=== PATIENT | male | born 1970 | race Caucasian/White ===

== ENCOUNTER 2017-06-04 17:37 | Emergency (ER) | payer MEDICAID, OTHER ==
[2017-06-04 17:59] VITALS: BP 156/91
--- NOTE | 2017-06-04 19:03 | RAD ---
Indication: Right knee pain. 4 views of the right knee demonstrates no fracture. There are mild degenerative changes of both the medial and lateral compartment. There is suggestion of a suprapatellar effusion. IMPRESSION: Suprapatellar effusion with degenerative changes of both knees.
[2017-06-04] MEDS ORDERED: Ibuprofen TAB* 600 MG PO ONE (19:21)
--- NOTE | 2017-06-04 19:49 | UC ---
Gurwinder Martin Nilda, scribed for Jimbo Celestin MD on 06/04/17 at 1906 . Knee Pain HPI - HPI Summary HPI Summary: This patient is a 46 year old M presenting to [facility] with a chief complaint of constant right knee pain since twisting it while sleeping last night. The patient rates the aching pain 8/10 in severity. Symptoms aggravated by walking and bending. Symptoms alleviated by rest and ibuprofen. Patient reports right calf pain and decreased knee ROM secondary to pain. He states that he occasionally feels like knee may give out on him. Pt notes that when he keeps his leg straight, he occasionally feels pain travel to right foot. Two weeks ago pt twisted right knee after getting out of bed. No PMHx blood clots. PSHx surgery on his left knee. - History of Current Complaint Chief Complaint: UCLowerExtremity Stated Complaint: KNEE INJURY Time Seen by Provider: 06/04/17 18:30 Hx Obtained From: Patient Onset/Duration: Sudden Onset, Lasting Days, Still Present Severity Currently: Severe Location Of Injury: right knee Pain Intensity: 8 Pain Scale Used: 0-10 Numeric Character: Aching Aggravating Factor(s): Movement, Other - bending Alleviating Factor(s): Rest, OTC Meds - ibuprofen - Allergies/Home Medications Allergies/Adverse Reactions: Allergies Allergy/AdvReac Type Severity Reaction Status Date / Time CI Pigment Blue 63 Allergy Severe swelling/it Verified 06/04/17 17:59 [From Dexilant] ivette Dexlansoprazole Allergy Severe swelling/it Verified 06/04/17 17:59 [From Dexilant] ivette Home Medications: Home Medications Metformin HCl [Fortamet] 06/04/17 [History] Metoprolol Succinate [Metoprolol Succinate ER] 06/04/17 [History] Nicotine PATCH 21 MG/24 HR* 06/04/17 [History] PMH/Surg Hx/FS Hx/Imm Hx - Additional Past Medical History Additional PMH: Arthritis Cardiovascular History: Hypertension GI/ History: Ulcer - Surgical History Surgical History: Yes Surgery Procedure, Year, and Place: TRIPLE HERNIA REPAIR--AUGUST 2011 PT HAD MESH REACTION. LEFT KNEE SURGERY MAR 2015 - Family History Known Family History: Positive: Cardiac Disease - Social History Alcohol Use: None Alcohol Amount: ONCE A MONTH Substance Use Type: None Smoking Status (MU): Heavy Every Day Tobacco Smoker Type: Cigarettes Amount Used/How Often: one pack x 30 years Have You Smoked in the Last Year: Yes Household Exposure Type: Cigarettes - Immunization History Most Recent Influenza Vaccination: unknown Most Recent Tetanus Shot: unsure Most Recent Pneumonia Vaccination: never Review of Systems Skin: Other - psoriasis Musculoskeletal: Decreased ROM, Other: - right knee pain; right foot pain upon extending right leg for too long All Other Systems Reviewed And Are Negative: Yes Physical Exam Triage Information Reviewed: Yes Vital Signs: Initial Vital Signs Temp 98.6 F 06/04/17 17:53 Pulse 81 06/04/17 17:53 Resp 14 06/04/17 17:53 BP 156/91 06/04/17 17:53 Pulse Ox 98 06/04/17 17:53 Vital Signs Reviewed: Yes - Additional Comments General: well-appearing, no pain distress Skin: warm, color reflects adequate perfusion, dry, severe psoriasis Head: normal Eyes: EOMI, STEW ENT: normal Neck: supple, nontender Respiratory: CTA, breath sounds present Cardiovascular: RRR Abdomen: soft, nontender Bowel: present Musculoskeletal: Right knee effusion stable to exam, Tender over the medial aspect of right knee, popliteal, and patella. Not tender laterally. No tenderness to calf or upper inner thigh. + Edema bilat. Neurological: normal, sensory/motor intact, A&O x3 Psychological: affect/mood appropriate Diagnostics - Radiology R Knee XR Radiology Interpretation Completed By: Radiologist - Right knee XR, per radiologist, reveals suprapatellar effusion with degenerative changes of both knees. Dr. Celestin has reviewed this radiology report. Re-Evaluation - Re-Evaluation First Eval Re-Evaluation Time: 19:15 Comment: Reviewed imaging results with pt. Pt agreeable to discharge. Knee Pain Course/Dx - Course Course Of Treatment: Knee XR, per radiologist, reveals suprapatellar effusion with degenerative changes of both knees. Dr. Celestin has reviewed this radiology report. Allergies noted. Medications reviewed. BP noted and advised to follow up with PCP. DISCUSSED RESULTS WITH PATIENT. PATIENT HAS CHRONIC EDEMA. WE DISCUSSED THE POSSIBLITY OF DVT; THIS IS UNLIKELY AT THIS TIME GIVEN HIS HX AND EXAM. THE PAIN ORIGINATES AT THE SWOLLEN KNEE. HE WILL SEEK RE EVAL IF ANY S/SX OF DVT. F/U PMD; RETURN IF WORSE OR QUESTIONS/ CONCERNS. - Differential Dx/Diagnosis Provider Diagnoses: RIGHT KNEE EFFUSION AND PAIN. uncontrolled hypertension Discharge - Discharge Plan Condition: Stable Disposition: HOME Prescriptions: HYDROcodone/ACETAMIN 5-325 MG* [[place] 5-325 TAB*] 1 tab PO Q4H PRN #30 tab MDD 6 PRN Reason: Pain Patient Education Materials: Swollen Knee Joint (ED), Knee Pain (ED) Referrals: Carrol Snow [Primary Care Provider] - Additional Instructions: FOLLOW UP WITH YOUR DOCTOR. YOUR PAIN APPEARS TO BE FROM YOUR KNEE INJURY. WE DID NOT DO AN ULTRASOUND TO EVALUATE YOUR LEG FOR A DEEP VENOUS THROMBOSIS ( DVT). IT DOES NOT APPEAR THAT YOU HAVE A DVT AT THIS TIME HOWEVER, IF YOUR LEG WORSENS WITH CALF OR UPPER INNER THIGH SWELLING OR PAIN, GET CHECKED FOR A DVT. GET RECHECKED FOR ANY WORSENING OF YOUR CONDITION; CALF OR UPPER INNER THIGH PAIN, OR QUESTIONS OR CONCERNS. Your blood pressure was elevated during todays visit; please follow up with your primary care provider within a week for further evaluation. The documentation as recorded by the Gurwinder lambert Nilda accurately reflects the service I personally performed and the decisions made by me, Jimbo Celestin MD.
== END 2017-06-04 19:30 | disposition home or self-care (01) ==
LOC: UCEAST 17:37
DX: M25.561 Pain in right knee (principal); M25.461 Effusion, right knee; I10 Essential (primary) hypertension; F17.210 Nicotine dependence, cigarettes, uncomplicated; R29.898 Other symptoms and signs involving the musculoskeletal system
CPT/HCPCS: 99212; A9270-GY; G0463

== ENCOUNTER 2019-04-28 08:39 | Emergency (ER) | payer SELFPAY ==
[2019-04-28 08:54] VITALS: BP 131/85
--- NOTE | 2019-04-28 09:48 | UC ---
Lower Extremity/Ankle HPI - History of Current Complaint Chief Complaint: UCLowerExtremity Stated Complaint: LEFT CALF COMPLAINT Time Seen by Provider: 04/28/19 09:31 Pain Intensity: 11 - Allergies/Home Medications Allergies/Adverse Reactions: Allergies Allergy/AdvReac Type Severity Reaction Status Date / Time dexlansoprazole Allergy Itching Verified 04/05/18 13:17 [From Dexilant] and Swelling Home Medications: Home Medications NK [No Home Medications Reported] 04/28/19 [History Confirmed 04/28/19] PMH/Surg Hx/FS Hx/Imm Hx - Surgical History Surgical History: Yes Surgery Procedure, Year, and Place: TRIPLE HERNIA REPAIR--AUGUST 2011 PT HAD MESH REACTION. LEFT KNEE SURGERY MAR 2015 - Family History Known Family History: Positive: None, Cardiac Disease - Social History Alcohol Use: Occasionally Alcohol Amount: ONCE A MONTH Substance Use Type: None Smoking Status (MU): Heavy Every Day Tobacco Smoker Type: Cigarettes Amount Used/How Often: 1 PPD Length of Time of Smoking/Using Tobacco: Since Age 11 Have You Smoked in the Last Year: Yes Household Exposure Type: Cigarettes - Immunization History Most Recent Influenza Vaccination: unknown Most Recent Tetanus Shot: unsure Most Recent Pneumonia Vaccination: never Vaccination Up to Date: Yes Physical Exam Vital Signs: Initial Vital Signs Temp 98.1 F 04/28/19 08:48 Pulse 100 04/28/19 08:48 Resp 18 04/28/19 08:48 BP 131/85 04/28/19 08:48 Pulse Ox 96 04/28/19 08:48 Discharge ED - Discharge Plan Referrals: Carrol Snow [Primary Care Provider] -
--- NOTE | 2019-04-28 11:19 | UC ---
Lower Extremity/Ankle HPI - HPI Summary HPI Summary: Pt presents with c/o left posterior calf pain worsening with ambulation and palpation X 1 week. Pt has fmh of DVT. Pt is a diabetic. - History of Current Complaint Chief Complaint: UCLowerExtremity Stated Complaint: LEFT CALF COMPLAINT Time Seen by Provider: 04/28/19 09:31 Hx Obtained From: Patient Onset/Duration: Gradual Onset, Lasting Days, Still Present, Worse Since - onset Pain Intensity: 11 Pain Scale Used: 0-10 Numeric Aggravating Factor(s): Standing, Ambulation Alleviating Factor(s): Nothing Able to Bear Weight: Yes - Risk Factors Gout Risk Factors: Age Over 40, Male, Diabetes, Obesity DVT Risk Factors: Family Hx of Clotting Disorder Septic Arthritis Risk Factor: Negative - Allergies/Home Medications Allergies/Adverse Reactions: Allergies Allergy/AdvReac Type Severity Reaction Status Date / Time dexlansoprazole Allergy Itching Verified 04/05/18 13:17 [From Dexilant] and Swelling Home Medications: Home Medications NK [No Home Medications Reported] 04/28/19 [History Confirmed 04/28/19] PMH/Surg Hx/FS Hx/Imm Hx Previously Healthy: Yes Endocrine History: Diabetes Cardiovascular History: Cardiac Disease, Hypertension - Surgical History Surgical History: Yes Surgery Procedure, Year, and Place: TRIPLE HERNIA REPAIR--AUGUST 2011 PT HAD MESH REACTION. LEFT KNEE SURGERY MAR 2015 - Family History Known Family History: Positive: None, Cardiac Disease - Social History Occupation: Employed Full-time Lives: Alone Alcohol Use: Occasionally Alcohol Amount: ONCE A MONTH Substance Use Type: None Smoking Status (MU): Heavy Every Day Tobacco Smoker Type: Cigarettes Amount Used/How Often: 1 PPD Length of Time of Smoking/Using Tobacco: Since Age 11 Have You Smoked in the Last Year: Yes Household Exposure Type: Cigarettes - Immunization History Most Recent Influenza Vaccination: unknown Most Recent Tetanus Shot: unsure Most Recent Pneumonia Vaccination: never Vaccination Up to Date: Yes Review of Systems All Other Systems Reviewed And Are Negative: Yes Constitutional: Positive: Negative Skin: Positive: Other - venous stasis bilateral, extremely dry skin, bilateral lower extremities. Eyes: Positive: Negative ENT: Positive: Negative Respiratory: Positive: Negative Cardiovascular: Positive: Negative Gastrointestinal: Positive: Negative Genitourinary: Positive: Negative Motor: Positive: Negative Neurovascular: Positive: Negative Musculoskeletal: Positive: Edema - left calf, Myalgia - left calf posterior Neurological: Positive: Negative Psychological: Positive: Negative Is Patient Immunocompromised?: No Physical Exam Triage Information Reviewed: Yes Appearance: Obese Vital Signs: Initial Vital Signs Temp 98.1 F 04/28/19 08:48 Pulse 100 04/28/19 08:48 Resp 18 04/28/19 08:48 BP 131/85 04/28/19 08:48 Pulse Ox 96 04/28/19 08:48 Vital Signs Reviewed: Yes Eye Exam: Normal ENT Exam: Normal Dental: Positive: Gross Decay/Caries @ Neck exam: Normal Respiratory: Positive: No respiratory distress Cardiovascular: Positive: Tachycardia Musculoskeletal: Positive: Other: - posterior left calf pain Neurological Exam: Normal Psychological Exam: Normal Skin Exam: Other - venous stasis bilateral lower extremities, extrmely dry skin Pt advised to jani support socks and to apply unscented lotion such as cetaphil to skin daily. Lower Extremity Course/Dx - Course Course Of Treatment: Pt advised to go to ER for further testing and evaluation to rule out DVt. Pt verbalized understanding and agreed to plan of care. - Differential Dx/Diagnosis Differential Diagnosis/HQI/PQRI: Cellulitis, DVT, Tendonitis Provider Diagnosis: Pain of left calf, Dry skin, Venous stasis dermatitis Discharge ED - Sign-Out/Discharge Documenting (check all that apply): Patient Departure All imaging exams completed and their final reports reviewed: No Studies - Discharge Plan Condition: Stable Disposition: HOME-RECOMMEND TO ED Patient Education Materials: Leg Edema (ED) Forms: *Work Release Referrals: Carrol Snow [Primary Care Provider] - As Soon As Possible Additional Instructions: It is recommended that you go directly to the closest emergency room for further testing and evaluation of your left lower leg pain and swelling. Please follow up with your PCP as soon as possible. For your dry skin, please use a lotion such as Cetaphil or it's generic equivalent to hydrate your skin. - Billing Disposition and Condition Condition: STABLE Disposition: Home-Recommend to ED
== END 2019-04-28 09:56 | disposition home health service (06) ==
LOC: UCCORT 08:39
DX: M79.662 Pain in left lower leg (principal); L30.8 Other specified dermatitis; E11.9 Type 2 diabetes mellitus without complications; I10 Essential (primary) hypertension; F17.210 Nicotine dependence, cigarettes, uncomplicated; R00.0 Tachycardia, unspecified; Z88.8 Allergy status to other drugs, medicaments and biological substances
CPT/HCPCS: 99212; G0463

== ENCOUNTER 2020-07-23 10:18 | Inpatient (IN) ==
[2020-07-23] MEDS ORDERED: Piperacillin/Tazobac ADVAN 3.375 GM in NS 0.9% 100 ml BAG 100 ML IV ONE (10:50)
[2020-07-23] MEDS ORDERED: Piperacillin/Tazobac 3.375 GM BAG ONE (11:26)
[2020-07-23] MEDS ORDERED: NS 0.9% 1000 ml BAG 1,000 ML IV ONE (11:33)
[2020-07-23 11:39] LABS: ABS Basophils 0.1 10^3/ul (0-0.2); ABS Eosinophils 0.3 10^3/ul (0-0.6); ABS Lymphocytes 1.5 10^3/ul (1.0-4.8); ABS Monocytes 0.8 10^3/ul (0-0.8); ABS Neutrophils 5.5 10^3/ul (1.5-7.7); Eosinophil % 3.8 %; Hematocrit 49 % (42-52); Hemoglobin 15.6 g/dL (14.0-18.0); Lymphocyte % 18.5 %; Mean Corpuscular HGB Conc 32 g/dL (31-36); Mean Corpuscular Hemoglobin 30 pg (27-31); Mean Corpuscular Volume 94 fL (80-94); Mean Platelet Volume 9.1 fL (7.4-10.4); Nucleated Red Blood Cells % 0.1; Platelet Count 195 10^3/uL (150-450); Red Blood Count 5.23 10^6 /uL (4.18-5.48); Red Cell Distribution Width 16 % (10-15); White Blood Count 8.2 10^3/uL (3.5-10.8)
[2020-07-23 12:00] LABS: ALT 46 U/L (7-52); Albumin 3.7 g/dL (3.2-5.2); Albumin/Globulin Ratio 1.2 (1-3); Alkaline Phosphatase 62 U/L (34-104); BUN/Creatinine Ratio 24.1 (8-20); Blood Urea Nitrogen 20 mg/dL (6-24); C Reactive Protein 30.16 mg/L (<8.01); CO2 Carbon Dioxide 33 mmol/L (22-32); Calcium 8.4 mg/dL (8.6-10.3); Chloride 103 mmol/L (101-111); EGFR African American 119.2 (>60); EGFR Non-African American 98.5 (>60); Globulin 3.1 g/dL (2-4); Glucose 120 mg/dL (70-100); Sodium 139 mmol/L (135-145); Total Protein 6.8 g/dL (6.4-8.9)
[2020-07-23 12:03] LABS: Troponin I 0.04 ng/mL (<0.03)
[2020-07-23] MEDS ORDERED: Iodixanol (CONTRAST) 320 MG/ML 100 ML SDV IV ONE (12:23)
[2020-07-23 12:41] LABS: Anion Gap 3 mmol/L (2-11)
[2020-07-23 15:26] LABS: Potassium Redraw 4.6 mmol/L (3.5-5.0)
[2020-07-23] MEDS ORDERED: Dextrose 50% Syringe 50 ml 25 GM/50 ML SYRINGE IV PUSH PRN (17:55)
[2020-07-23 19:25] LABS: Urine Appearance Clear; Urine Bacteria Absent (Absent); Urine Bilirubin Negative (Negative); Urine Blood 2+ (Negative); Urine Color Yellow; Urine Glucose Negative (Negative); Urine Ketones Negative (Negative); Urine Nitrite Negative (Negative); Urine Protein 1+(30 mg/dL) (Negative); Urine Red Blood Cell Trace(0-2/hpf) (Absent); Urine Urobilinogen Negative (Negative); Urine White Blood Cell 1+(6-10/hpf) (Absent)
[2020-07-23] MEDS ORDERED: Enoxaparin 40 MG/0.4 ML SYR SUBCUT SCH (21:00)
[2020-07-23] MEDS: Enoxaparin 40 MG/0.4 ML SYR SUBCUT SCH (21:21)
[2020-07-23] MEDS: ceFAZolin 2 GM PREMIX 2 GM/50 ML BAG IVPB SCH (21:56)
[2020-07-24 04:32] LABS: ABS Basophils 0.1 10^3/ul (0-0.2); ABS Eosinophils 0.1 10^3/ul (0-0.6); ABS Lymphocytes 1.4 10^3/ul (1.0-4.8); ABS Monocytes 1.1 10^3/ul (0-0.8); ABS Neutrophils 8.9 10^3/ul (1.5-7.7); Eosinophil % 1.1 %; Hematocrit 47 % (42-52); Hemoglobin 14.7 g/dL (14.0-18.0); Lymphocyte % 11.7 %; Mean Corpuscular HGB Conc 31 g/dL (31-36); Mean Corpuscular Hemoglobin 29 pg (27-31); Mean Corpuscular Volume 94 fL (80-94); Mean Platelet Volume 9.1 fL (7.4-10.4); Nucleated Red Blood Cells % 0.1; Platelet Count 202 10^3/uL (150-450); Red Cell Distribution Width 16 % (10-15); White Blood Count 11.5 10^3/uL (3.5-10.8)
[2020-07-24 04:48] LABS: BUN/Creatinine Ratio 22.1 (8-20); Blood Urea Nitrogen 17 mg/dL (6-24); CO2 Carbon Dioxide 35 mmol/L (22-32); Calcium 8.2 mg/dL (8.6-10.3); Chloride 101 mmol/L (101-111); EGFR African American 129.9 (>60); EGFR Non-African American 107.4 (>60); Glucose 108 mg/dL (70-100); Sodium 139 mmol/L (135-145)
[2020-07-24 04:57] LABS: Anion Gap 3 mmol/L (2-11)
[2020-07-24] MEDS: ceFAZolin 2 GM PREMIX 2 GM/50 ML BAG IVPB SCH ×2 (05:13→14:12)
[2020-07-24 08:05] LABS: Urine Appearance Cloudy; Urine Bilirubin Negative (Negative); Urine Blood 2+ (Negative); Urine Color Yellow; Urine Glucose Negative (Negative); Urine Ketones Negative (Negative); Urine Nitrite Negative (Negative); Urine Protein 1+(30 mg/dL) (Negative); Urine Specific Gravity 1.023 (1.010-1.030); Urine Urobilinogen Negative (Negative)
[2020-07-24 08:14] LABS: Urine Bacteria Absent (Absent); Urine Red Blood Cell 3+(>10/hpf) (Absent); Urine Squamous Epithelial Cell Present (Absent); Urine White Blood Cell 2+(11-20/hpf) (Absent)
[2020-07-24] MEDS: Enoxaparin 40 MG/0.4 ML SYR SUBCUT SCH ×2 (08:45→21:00)
[2020-07-24] MEDS ORDERED: Flumazenil 0.5 mg/5 ml 0.1 MG/ML 5 ml VIAL IV ONE ×4 (09:23→17:29)
[2020-07-24] MEDS ORDERED: Flumazenil 0.5 mg/5 ml 0.1 MG/ML 5 ml VIAL ONE (09:26)
[2020-07-24] MEDS ORDERED: Succinylcholine 200 mg VIAL 20 mg/ml 10 ml VIAL (200 mg) ONE ×3 (09:36→17:47)
[2020-07-24] MEDS: Flumazenil 0.5 mg/5 ml 0.1 MG/ML 5 ml VIAL IV SCH ×2 (09:45→10:00)
[2020-07-24 10:07] LABS: ALT 40 U/L (7-52); Albumin 3.7 g/dL (3.2-5.2); Albumin/Globulin Ratio 1.5 (1-3); Alkaline Phosphatase 64 U/L (34-104); Globulin 2.5 g/dL (2-4); Total Protein 6.2 g/dL (6.4-8.9)
[2020-07-24 10:40] LABS: Potassium Redraw 4.9 mmol/L (3.5-5.0)
[2020-07-24] MEDS ORDERED: Succinylcholine 200 mg VIAL 20 mg/ml 10 ml VIAL (200 mg) IV ONE (17:38)
[2020-07-24] MEDS ORDERED: Propofol 10 MG/ML 20 ML BTL IV PUSH ONE (17:38)
[2020-07-24] MEDS ORDERED: fentaNYL 100 mcg/2 ml 50 MCG/ML VIAL IV SLOW PU ONE (17:39)
[2020-07-24] MEDS ORDERED: Rocuronium 50 mg VIAL 10 mg/ml 5 ml VIAL (50 mg) ONE (17:47)
[2020-07-24] MEDS ORDERED: fentaNYL 250 mcg/5 ml 50 MCG/ML 5 ml VIAL (250 MCG) ONE (17:47)
[2020-07-24] MEDS ORDERED: Propofol 10 MG/ML 20 ML BTL ONE (17:47)
[2020-07-24] MEDS ORDERED: Propofol 10 mg/ml 100 ML BTL 100 ML IV SCH (18:00)
[2020-07-24] MEDS ORDERED: NS 0.9% 1000 ml BAG 1,000 ML IV ONE ×2 (18:03→18:07)
[2020-07-24] MEDS: Aspirin EC 81 mg TAB.EC (enteric coated) PO SCH (18:07)
[2020-07-24] MEDS ORDERED: Artificial Tear OPHTH.OINT 3.5 GM BOTH EYES PRN (18:47)
[2020-07-24] MEDS ORDERED: Piperacillin/Tazobac ADVAN 3.375 GM in NS 0.9% 100 ml BAG 100 ML IV ONE (19:00)
[2020-07-24] MEDS ORDERED: Zosyn per Pharmacy NOTE FOLLOW UP SCH (19:00)
[2020-07-24] MEDS: Propofol 10 mg/ml 100 ML BTL 100 ML IV SCH ×4 (19:17→23:11)
[2020-07-24] MEDS: Chlorhexidine MOUTHWASH 0.12% 15 ML UDC SWISH SPIT SCH (19:50)
[2020-07-24] MEDS: Azithromycin 500 mg/250 ml NS 500 MG/250 ML BAG IVPB SCH (19:50)
[2020-07-24] MEDS: Famotidine IV 10 MG/ML 2 ml VIAL (20 mg) IV SLOW PU SCH (21:00)
[2020-07-24] MEDS ORDERED: LORazepam 2 mg VIAL 1 ml ONE (21:55)
[2020-07-24] MEDS ORDERED: Lorazepam PYXIS KEY ONE (21:55)
[2020-07-24] MEDS: ZOSYN 3.375 GM Q8H per EXTENDED INFUSION IV SCH (22:19)
[2020-07-25] MEDS: Propofol 10 mg/ml 100 ML BTL 100 ML IV SCH ×8 (00:48→23:48)
[2020-07-25 01:35] LABS: Urine Appearance Clear; Urine Bilirubin Negative (Negative); Urine Blood Negative (Negative); Urine Color Yellow; Urine Glucose Negative (Negative); Urine Ketones 1+ (Negative); Urine Nitrite Negative (Negative); Urine Protein Negative (Negative); Urine Specific Gravity 1.034 (1.010-1.030); Urine Urobilinogen Negative (Negative)
[2020-07-25] MEDS: Chlorhexidine MOUTHWASH 0.12% 15 ML UDC SWISH SPIT SCH ×6 (02:06→22:19)
[2020-07-25 03:59] LABS: ABS Eosinophils 0.1 10^3/ul (0-0.6); ABS Lymphocytes 0.8 10^3/ul (1.0-4.8); ABS Monocytes 0.8 10^3/ul (0-0.8); ABS Neutrophils 6.5 10^3/ul (1.5-7.7); Hematocrit 45 % (42-52); Hemoglobin 14.2 g/dL (14.0-18.0); Lymphocyte % 9.1 %; Mean Corpuscular HGB Conc 32 g/dL (31-36); Mean Corpuscular Hemoglobin 30 pg (27-31); Mean Corpuscular Volume 93 fL (80-94); Mean Platelet Volume 9.1 fL (7.4-10.4); Platelet Count 168 10^3/uL (150-450); Red Blood Count 4.82 10^6 /uL (4.18-5.48); Red Cell Distribution Width 16 % (10-15); White Blood Count 8.2 10^3/uL (3.5-10.8)
[2020-07-25 04:13] LABS: BUN/Creatinine Ratio 24.3 (8-20); Calcium 8.4 mg/dL (8.6-10.3); EGFR Non-African American 119.9 (>60); Potassium 3.8 mmol/L (3.5-5.0)
[2020-07-25] MEDS: ZOSYN 3.375 GM Q8H per EXTENDED INFUSION IV SCH (05:17)
[2020-07-25] MEDS: Aspirin EC 81 mg TAB.EC (enteric coated) PO SCH (08:58)
[2020-07-25] MEDS: Enoxaparin 40 MG/0.4 ML SYR SUBCUT SCH ×2 (08:59→21:38)
[2020-07-25] MEDS ORDERED: Pantoprazole VIAL 40 MG VIAL IV SCH (09:00)
[2020-07-25] MEDS: Famotidine IV 10 MG/ML 2 ml VIAL (20 mg) IV SLOW PU SCH ×2 (09:01→21:38)
[2020-07-25] MEDS: Piperacillin/Tazobactam VIAL 4.5 GM in NS 0.9% 100 ml BAG 100 ML IVPB SCH ×2 (15:40→22:19)
[2020-07-25 18:41] LABS: Influenza A Molecular Negative (Negative); Influenza B Molecular Negative (Negative)
[2020-07-25] MEDS: Azithromycin 500 mg/250 ml NS 500 MG/250 ML BAG IVPB SCH (19:16)
[2020-07-26] MEDS: Propofol 10 mg/ml 100 ML BTL 100 ML IV SCH ×9 (01:23→19:30)
[2020-07-26] MEDS: Chlorhexidine MOUTHWASH 0.12% 15 ML UDC SWISH SPIT SCH ×6 (02:30→21:45)
[2020-07-26] MEDS: Piperacillin/Tazobactam VIAL 4.5 GM in NS 0.9% 100 ml BAG 100 ML IVPB SCH ×3 (05:26→22:20)
[2020-07-26] MEDS: Enoxaparin 40 MG/0.4 ML SYR SUBCUT SCH ×2 (09:33→19:30)
[2020-07-26] MEDS: Famotidine IV 10 MG/ML 2 ml VIAL (20 mg) IV SLOW PU SCH ×2 (09:34→19:31)
[2020-07-26] MEDS: Aspirin EC 81 mg TAB.EC (enteric coated) PO SCH (09:34)
[2020-07-26 09:40] LABS: ABS Eosinophils 0.2 10^3/ul (0-0.6); ABS Lymphocytes 0.9 10^3/ul (1.0-4.8); ABS Monocytes 0.7 10^3/ul (0-0.8); ABS Neutrophils 5.6 10^3/ul (1.5-7.7); Eosinophil % 2.3 %; Hematocrit 48 % (42-52); Hemoglobin 15.3 g/dL (14.0-18.0); Mean Corpuscular HGB Conc 32 g/dL (31-36); Mean Corpuscular Hemoglobin 29 pg (27-31); Mean Corpuscular Volume 91 fL (80-94); Mean Platelet Volume 9.2 fL (7.4-10.4); Platelet Count 180 10^3/uL (150-450); Red Blood Count 5.27 10^6 /uL (4.18-5.48); Red Cell Distribution Width 16 % (10-15); White Blood Count 7.4 10^3/uL (3.5-10.8)
[2020-07-26 09:56] LABS: BUN/Creatinine Ratio 17.2 (8-20); Calcium 8.4 mg/dL (8.6-10.3); EGFR African American 112.9 (>60); EGFR Non-African American 93.3 (>60)
[2020-07-26] MEDS: Polyethylene Glycol 3350 17 GM PACKET PO SCH (18:26)
[2020-07-26] MEDS ORDERED: Dextrose 50% Syringe 50 ml 25 GM/50 ML SYRINGE ONE (19:49)
[2020-07-27] MEDS: Propofol 10 mg/ml 100 ML BTL 100 ML IV SCH ×8 (00:35→23:22)
[2020-07-27] MEDS: Chlorhexidine MOUTHWASH 0.12% 15 ML UDC SWISH SPIT SCH ×6 (01:52→20:58)
[2020-07-27 03:56] LABS: ABS Eosinophils 0.3 10^3/ul (0-0.6); ABS Lymphocytes 0.9 10^3/ul (1.0-4.8); ABS Monocytes 0.9 10^3/ul (0-0.8); ABS Neutrophils 4.3 10^3/ul (1.5-7.7); Eosinophil % 5.3 %; Hematocrit 47 % (42-52); Lymphocyte % 13.4 %; Mean Corpuscular HGB Conc 32 g/dL (31-36); Mean Corpuscular Hemoglobin 29 pg (27-31); Mean Corpuscular Volume 92 fL (80-94); Platelet Count 172 10^3/uL (150-450); Red Cell Distribution Width 16 % (10-15); White Blood Count 6.5 10^3/uL (3.5-10.8)
[2020-07-27 04:17] LABS: BUN/Creatinine Ratio 13.8 (8-20); Calcium 8.2 mg/dL (8.6-10.3); EGFR African American 112.9 (>60); EGFR Non-African American 93.3 (>60)
[2020-07-27 04:23] LABS: Potassium 4.1 mmol/L (3.5-5.0)
[2020-07-27 04:43] LABS: Folate 6.97 ng/mL (>3.99)
[2020-07-27] MEDS: Piperacillin/Tazobactam VIAL 4.5 GM in NS 0.9% 100 ml BAG 100 ML IVPB SCH ×3 (05:05→21:26)
[2020-07-27 08:14] LABS: Phosphorus 3.7 mg/dL (2.5-5.0)
[2020-07-27] MEDS: Enoxaparin 40 MG/0.4 ML SYR SUBCUT SCH ×2 (09:21→19:38)
[2020-07-27] MEDS: Aspirin EC 81 mg TAB.EC (enteric coated) PO SCH (09:22)
[2020-07-27] MEDS: Famotidine IV 10 MG/ML 2 ml VIAL (20 mg) IV SLOW PU SCH ×2 (09:23→19:37)
[2020-07-27] MEDS: Polyethylene Glycol 3350 17 GM PACKET PO SCH (09:23)
[2020-07-27] MEDS: Docusate LIQ 100 MG/10 ML UDC PO SCH ×2 (09:23→19:37)
[2020-07-27] MEDS: fentaNYL 100 mcg/2 ml 50 MCG/ML VIAL IV SLOW PU PRN (10:14)
[2020-07-27] MEDS: Dextran 70/Hypromellose Tears Eye Drops 15 ml BTL (for Artificials Tears) BOTH EYES SCH ×5 (10:16→21:52)
[2020-07-28] MEDS: Propofol 10 mg/ml 100 ML BTL 100 ML IV SCH ×10 (01:20→23:18)
[2020-07-28] MEDS: Chlorhexidine MOUTHWASH 0.12% 15 ML UDC SWISH SPIT SCH ×6 (01:21→21:19)
[2020-07-28] MEDS: Dextran 70/Hypromellose Tears Eye Drops 15 ml BTL (for Artificials Tears) BOTH EYES SCH ×6 (03:37→23:18)
[2020-07-28 05:06] LABS: Hematocrit 47 % (42-52); Mean Corpuscular HGB Conc 32 g/dL (31-36); Mean Corpuscular Hemoglobin 29 pg (27-31); Mean Corpuscular Volume 91 fL (80-94); Mean Platelet Volume 9.4 fL (7.4-10.4); Platelet Count 231 10^3/uL (150-450); Red Blood Count 5.12 10^6 /uL (4.18-5.48); Red Cell Distribution Width 16 % (10-15)
[2020-07-28 05:16] LABS: ABS Eosinophils 0.3 10^3/ul (0-0.6); ABS Lymphocytes 0.9 10^3/ul (1.0-4.8); ABS Monocytes 0.7 10^3/ul (0-0.8); Eosinophil % 5.5 %; Lymphocyte % 14.8 %; Nucleated Red Blood Cells % 0.1
[2020-07-28] MEDS: Piperacillin/Tazobactam VIAL 4.5 GM in NS 0.9% 100 ml BAG 100 ML IVPB SCH ×3 (05:26→21:19)
[2020-07-28 05:39] LABS: Sodium 135 mmol/L (135-145)
[2020-07-28 05:40] LABS: BUN/Creatinine Ratio 20.6 (8-20); Blood Urea Nitrogen 14 mg/dL (6-24); CO2 Carbon Dioxide 32 mmol/L (22-32); Chloride 103 mmol/L (101-111); EGFR Non-African American 123.9 (>60); Glucose 126 mg/dL (70-100)
[2020-07-28] MEDS: Polyethylene Glycol 3350 17 GM PACKET PO SCH (08:42)
[2020-07-28] MEDS: Enoxaparin 40 MG/0.4 ML SYR SUBCUT SCH ×2 (08:43→20:14)
[2020-07-28] MEDS: Docusate LIQ 100 MG/10 ML UDC PO SCH ×2 (08:44→20:14)
[2020-07-28] MEDS: Magnesium Hydroxide LIQ 30 ML UDC PO SCH ×5 (08:44→23:48)
[2020-07-28 08:45] LABS: Phosphorus 4.1 mg/dL (2.5-5.0)
[2020-07-28] MEDS: Famotidine IV 10 MG/ML 2 ml VIAL (20 mg) IV SLOW PU SCH ×2 (08:46→20:14)
[2020-07-28] MEDS ORDERED: Dexmedetomidine 1,000 MCG in NS 0.9% 250 ml 240 ML IV SCH (09:00)
[2020-07-28] MEDS ORDERED: methylPREDNISolone 125 mg 2 ML VIAL IV ONE (09:14)
[2020-07-28] MEDS: Albuterol/Ipratropium NEB.SOL (2.5/0.5 MG) 3 ML NEB.SOLN INH PRN ×2 (09:34→15:29)
[2020-07-28] MEDS: Albuterol/Ipratropium NEB.SOL (2.5/0.5 MG) 3 ML NEB.SOLN INH SCH ×2 (19:15→23:03)
[2020-07-28] MEDS: methylPREDNISolone SOD 40 mg/ml 1 ml VIAL IV SCH (20:14)
[2020-07-29] MEDS: Chlorhexidine MOUTHWASH 0.12% 15 ML UDC SWISH SPIT SCH ×6 (01:57→21:30)
[2020-07-29] MEDS: Propofol 10 mg/ml 100 ML BTL 100 ML IV SCH ×6 (01:57→20:51)
[2020-07-29] MEDS: Magnesium Hydroxide LIQ 30 ML UDC PO SCH ×6 (03:18→23:49)
[2020-07-29] MEDS: Dextran 70/Hypromellose Tears Eye Drops 15 ml BTL (for Artificials Tears) BOTH EYES SCH ×6 (03:18→22:08)
[2020-07-29] MEDS: Albuterol/Ipratropium NEB.SOL (2.5/0.5 MG) 3 ML NEB.SOLN INH SCH ×7 (03:21→23:01)
[2020-07-29 05:09] LABS: ABS Lymphocytes 0.5 10^3/ul (1.0-4.8); ABS Monocytes 0.7 10^3/ul (0-0.8); ABS Neutrophils 6.9 10^3/ul (1.5-7.7); Eosinophil % 0.1 %; Hematocrit 48 % (42-52); Hemoglobin 15.3 g/dL (14.0-18.0); Lymphocyte % 6.2 %; Mean Corpuscular HGB Conc 32 g/dL (31-36); Mean Corpuscular Hemoglobin 30 pg (27-31); Mean Corpuscular Volume 92 fL (80-94); Platelet Count 190 10^3/uL (150-450); Red Cell Distribution Width 16 % (10-15); White Blood Count 8.2 10^3/uL (3.5-10.8)
[2020-07-29 05:26] LABS: BUN/Creatinine Ratio 25.4 (8-20); Calcium 8.5 mg/dL (8.6-10.3); EGFR African American 163.8 (>60); EGFR Non-African American 135.4 (>60); Magnesium 2.3 mg/dL (1.9-2.7); Phosphorus 3.7 mg/dL (2.5-5.0); Potassium 4.6 mmol/L (3.5-5.0)
[2020-07-29] MEDS: Piperacillin/Tazobactam VIAL 4.5 GM in NS 0.9% 100 ml BAG 100 ML IVPB SCH ×3 (05:41→21:30)
[2020-07-29] MEDS ORDERED: Albuterol/Ipratropium NEB.SOL (2.5/0.5 MG) 3 ML NEB.SOLN ONE (08:23)
[2020-07-29] MEDS ORDERED: Albuterol/Ipratropium NEB.SOL (2.5/0.5 MG) 3 ML NEB.SOLN INH PRN (08:28)
[2020-07-29] MEDS: Enoxaparin 40 MG/0.4 ML SYR SUBCUT SCH ×2 (08:42→19:47)
[2020-07-29] MEDS: methylPREDNISolone SOD 40 mg/ml 1 ml VIAL IV SCH ×2 (08:42→19:47)
[2020-07-29] MEDS: Famotidine IV 10 MG/ML 2 ml VIAL (20 mg) IV SLOW PU SCH ×2 (08:42→19:47)
[2020-07-29] MEDS: Docusate LIQ 100 MG/10 ML UDC PO SCH ×2 (11:29→19:47)
[2020-07-29] MEDS: Polyethylene Glycol 3350 17 GM PACKET PO SCH (11:30)
[2020-07-29 16:11] LABS: Urine Potassium Concentration 69.9 mmol/L
[2020-07-30] MEDS: Propofol 10 mg/ml 100 ML BTL 100 ML IV SCH ×8 (00:31→22:39)
[2020-07-30] MEDS: Chlorhexidine MOUTHWASH 0.12% 15 ML UDC SWISH SPIT SCH ×6 (01:21→22:20)
[2020-07-30] MEDS: Dextran 70/Hypromellose Tears Eye Drops 15 ml BTL (for Artificials Tears) BOTH EYES SCH ×5 (03:05→21:20)
[2020-07-30] MEDS: Albuterol/Ipratropium NEB.SOL (2.5/0.5 MG) 3 ML NEB.SOLN INH SCH ×6 (03:25→23:10)
[2020-07-30] MEDS: Magnesium Hydroxide LIQ 30 ML UDC PO SCH ×3 (03:59→12:14)
[2020-07-30 05:06] LABS: ABS Lymphocytes 0.8 10^3/ul (1.0-4.8); ABS Monocytes 0.7 10^3/ul (0-0.8); ABS Neutrophils 6.9 10^3/ul (1.5-7.7); Eosinophil % 0.3 %; Hematocrit 47 % (42-52); Hemoglobin 14.8 g/dL (14.0-18.0); Lymphocyte % 9.1 %; Mean Corpuscular HGB Conc 32 g/dL (31-36); Mean Corpuscular Hemoglobin 29 pg (27-31); Mean Corpuscular Volume 93 fL (80-94); Mean Platelet Volume 9.3 fL (7.4-10.4); Platelet Count 188 10^3/uL (150-450); Red Blood Count 5.04 10^6 /uL (4.18-5.48); Red Cell Distribution Width 16 % (10-15); White Blood Count 8.3 10^3/uL (3.5-10.8)
[2020-07-30] MEDS: Piperacillin/Tazobactam VIAL 4.5 GM in NS 0.9% 100 ml BAG 100 ML IVPB SCH ×3 (05:12→22:17)
[2020-07-30 05:25] LABS: BUN/Creatinine Ratio 38.6 (8-20); Calcium 8.5 mg/dL (8.6-10.3); EGFR African American 183.8 (>60); EGFR Non-African American 151.9 (>60); Magnesium 2.2 mg/dL (1.9-2.7); Phosphorus 3.1 mg/dL (2.5-5.0); Potassium 4.3 mmol/L (3.5-5.0)
[2020-07-30] MEDS: Polyethylene Glycol 3350 17 GM PACKET PO SCH (08:22)
[2020-07-30] MEDS: methylPREDNISolone SOD 40 mg/ml 1 ml VIAL IV SCH ×2 (08:22→21:35)
[2020-07-30] MEDS: Famotidine IV 10 MG/ML 2 ml VIAL (20 mg) IV SLOW PU SCH ×2 (08:22→21:34)
[2020-07-30] MEDS: Enoxaparin 40 MG/0.4 ML SYR SUBCUT SCH ×2 (08:22→21:33)
[2020-07-30] MEDS: Docusate LIQ 100 MG/10 ML UDC PO SCH (08:23)
[2020-07-30] MEDS ORDERED: NS 0.9% 100 ml BAG 100 ML ONE (21:16)
[2020-07-31] MEDS: Dextran 70/Hypromellose Tears Eye Drops 15 ml BTL (for Artificials Tears) BOTH EYES SCH ×6 (00:21→19:54)
[2020-07-31] MEDS: Propofol 10 mg/ml 100 ML BTL 100 ML IV SCH ×8 (01:32→21:12)
[2020-07-31] MEDS: Chlorhexidine MOUTHWASH 0.12% 15 ML UDC SWISH SPIT SCH ×6 (01:35→21:55)
[2020-07-31] MEDS: Albuterol/Ipratropium NEB.SOL (2.5/0.5 MG) 3 ML NEB.SOLN INH SCH ×6 (03:21→23:06)
[2020-07-31 04:40] LABS: ABS Lymphocytes 0.7 10^3/ul (1.0-4.8); ABS Monocytes 0.5 10^3/ul (0-0.8); ABS Neutrophils 9.6 10^3/ul (1.5-7.7); Eosinophil % 0.1 %; Hematocrit 47 % (42-52); Lymphocyte % 6.4 %; Mean Corpuscular HGB Conc 32 g/dL (31-36); Mean Corpuscular Hemoglobin 29 pg (27-31); Mean Corpuscular Volume 93 fL (80-94); Mean Platelet Volume 9.7 fL (7.4-10.4); Platelet Count 207 10^3/uL (150-450); Red Blood Count 5.11 10^6 /uL (4.18-5.48); Red Cell Distribution Width 16 % (10-15); White Blood Count 10.8 10^3/uL (3.5-10.8)
[2020-07-31 04:58] LABS: BUN/Creatinine Ratio 36.2 (8-20); Calcium 8.7 mg/dL (8.6-10.3); EGFR African American 147.5 (>60); EGFR Non-African American 121.9 (>60); Magnesium 2.3 mg/dL (1.9-2.7); Phosphorus 3.2 mg/dL (2.5-5.0); Potassium 4.4 mmol/L (3.5-5.0)
[2020-07-31] MEDS: Piperacillin/Tazobactam VIAL 4.5 GM in NS 0.9% 100 ml BAG 100 ML IVPB SCH ×3 (06:01→21:55)
[2020-07-31] MEDS: methylPREDNISolone SOD 40 mg/ml 1 ml VIAL IV SCH (07:00)
[2020-07-31] MEDS: Famotidine IV 10 MG/ML 2 ml VIAL (20 mg) IV SLOW PU SCH ×2 (07:00→21:12)
[2020-07-31] MEDS: Enoxaparin 40 MG/0.4 ML SYR SUBCUT SCH (07:00)
[2020-07-31 15:37] LABS: Urine Appearance Clear; Urine Bilirubin Negative (Negative); Urine Blood Negative (Negative); Urine Color Yellow; Urine Glucose Negative (Negative); Urine Ketones Negative (Negative); Urine Nitrite Negative (Negative); Urine Protein Negative (Negative); Urine Specific Gravity 1.016 (1.010-1.030); Urine Urobilinogen Negative (Negative)
[2020-08-01] MEDS: Dextran 70/Hypromellose Tears Eye Drops 15 ml BTL (for Artificials Tears) BOTH EYES SCH ×7 (00:06→22:06)
[2020-08-01] MEDS: Propofol 10 mg/ml 100 ML BTL 100 ML IV SCH ×8 (00:07→19:37)
[2020-08-01] MEDS: Albuterol/Ipratropium NEB.SOL (2.5/0.5 MG) 3 ML NEB.SOLN INH SCH ×2 (02:35→07:01)
[2020-08-01] MEDS: Chlorhexidine MOUTHWASH 0.12% 15 ML UDC SWISH SPIT SCH ×6 (03:10→20:56)
[2020-08-01 04:18] LABS: ABS Basophils 0.1 10^3/ul (0-0.2); ABS Eosinophils 0.2 10^3/ul (0-0.6); ABS Lymphocytes 1.9 10^3/ul (1.0-4.8); ABS Monocytes 0.9 10^3/ul (0-0.8); ABS Neutrophils 5.6 10^3/ul (1.5-7.7); Eosinophil % 2.3 %; Hematocrit 48 % (42-52); Hemoglobin 15.2 g/dL (14.0-18.0); Lymphocyte % 21.9 %; Mean Corpuscular HGB Conc 32 g/dL (31-36); Mean Corpuscular Hemoglobin 29 pg (27-31); Mean Corpuscular Volume 92 fL (80-94); Mean Platelet Volume 9.1 fL (7.4-10.4); Platelet Count 212 10^3/uL (150-450); Red Blood Count 5.16 10^6 /uL (4.18-5.48); Red Cell Distribution Width 16 % (10-15); White Blood Count 8.6 10^3/uL (3.5-10.8)
[2020-08-01 04:34] LABS: BUN/Creatinine Ratio 31.2 (8-20); Calcium 8.9 mg/dL (8.6-10.3); EGFR African American 129.9 (>60); EGFR Non-African American 107.4 (>60); Magnesium 2.3 mg/dL (1.9-2.7); Phosphorus 3.4 mg/dL (2.5-5.0); Potassium 3.6 mmol/L (3.5-5.0)
[2020-08-01] MEDS ORDERED: KCL 20 MEQ/100 ML IVPREMIX 20 MEQ/100 ML BAG IV ONE (04:42)
[2020-08-01] MEDS: Piperacillin/Tazobactam VIAL 4.5 GM in NS 0.9% 100 ml BAG 100 ML IVPB SCH ×3 (06:08→20:56)
[2020-08-01] MEDS: Famotidine IV 10 MG/ML 2 ml VIAL (20 mg) IV SLOW PU SCH ×2 (07:20→19:29)
[2020-08-01] MEDS ORDERED: methylPREDNISolone SOD 40 mg/ml 1 ml VIAL IV SCH (09:00)
[2020-08-01] MEDS ORDERED: Midazolam 10 mg/10 ml VIAL 1 mg/ml 10 ml VIAL (10 mg) ONE (14:18)
[2020-08-01] MEDS ORDERED: fentaNYL 100 mcg/2 ml 50 MCG/ML VIAL ONE ×2 (14:18→15:12)
[2020-08-01] MEDS ORDERED: Ketamine HCL 50 mg/ml 10 ml VIAL (500 MG) ONE (14:18)
[2020-08-01] MEDS ORDERED: Lidocaine 1% w EPI 1:100,000 MDV 20 ML VIAL ONE (14:44)
[2020-08-01] MEDS ORDERED: Propofol 0 MG/0 ML BTL ONE (15:06)
[2020-08-01] MEDS ORDERED: Lidocaine 2% PF 5 ML VIAL ONE (15:06)
[2020-08-01] MEDS ORDERED: Propofol 10 MG/ML 20 ML BTL ONE (15:48)
[2020-08-02] MEDS: Propofol 10 mg/ml 100 ML BTL 100 ML IV SCH ×6 (00:19→23:09)
[2020-08-02] MEDS: Chlorhexidine MOUTHWASH 0.12% 15 ML UDC SWISH SPIT SCH ×6 (01:13→23:38)
[2020-08-02] MEDS: Dextran 70/Hypromellose Tears Eye Drops 15 ml BTL (for Artificials Tears) BOTH EYES SCH ×6 (03:31→23:33)
[2020-08-02 03:37] LABS: ABS Basophils 0.1 10^3/ul (0-0.2); ABS Eosinophils 0.2 10^3/ul (0-0.6); ABS Lymphocytes 1.6 10^3/ul (1.0-4.8); ABS Monocytes 1.1 10^3/ul (0-0.8); ABS Neutrophils 6.9 10^3/ul (1.5-7.7); Eosinophil % 1.9 %; Hematocrit 46 % (42-52); Hemoglobin 14.6 g/dL (14.0-18.0); Lymphocyte % 16.4 %; Mean Corpuscular HGB Conc 32 g/dL (31-36); Mean Corpuscular Hemoglobin 29 pg (27-31); Mean Corpuscular Volume 93 fL (80-94); Mean Platelet Volume 9.5 fL (7.4-10.4); Platelet Count 215 10^3/uL (150-450); Red Blood Count 4.99 10^6 /uL (4.18-5.48); Red Cell Distribution Width 16 % (10-15); White Blood Count 9.9 10^3/uL (3.5-10.8)
[2020-08-02 03:53] LABS: BUN/Creatinine Ratio 31.4 (8-20); Calcium 8.6 mg/dL (8.6-10.3); EGFR Non-African American 119.9 (>60); Phosphorus 2.7 mg/dL (2.5-5.0); Potassium 3.8 mmol/L (3.5-5.0)
[2020-08-02] MEDS: Piperacillin/Tazobactam VIAL 4.5 GM in NS 0.9% 100 ml BAG 100 ML IVPB SCH (05:13)
[2020-08-02] MEDS: Enoxaparin 40 MG/0.4 ML SYR SUBCUT SCH ×2 (08:22→21:20)
[2020-08-02] MEDS: Famotidine IV 10 MG/ML 2 ml VIAL (20 mg) IV SLOW PU SCH ×2 (08:22→21:19)
[2020-08-02] MEDS: fentaNYL 100 mcg/2 ml 50 MCG/ML VIAL IV SLOW PU PRN (08:23)
[2020-08-02] MEDS ORDERED: Scopolamine PATCH Remove NOTE PATCH OFF SCH (09:00)
[2020-08-03] MEDS: Dextran 70/Hypromellose Tears Eye Drops 15 ml BTL (for Artificials Tears) BOTH EYES SCH ×5 (03:39→20:52)
[2020-08-03] MEDS: Chlorhexidine MOUTHWASH 0.12% 15 ML UDC SWISH SPIT SCH ×6 (03:39→20:54)
[2020-08-03] MEDS: Propofol 10 mg/ml 100 ML BTL 100 ML IV SCH (06:37)
[2020-08-03] MEDS: Famotidine IV 10 MG/ML 2 ml VIAL (20 mg) IV SLOW PU SCH ×2 (09:00→20:53)
[2020-08-03] MEDS: Enoxaparin 40 MG/0.4 ML SYR SUBCUT SCH ×2 (09:00→20:53)
[2020-08-04] MEDS: Dextran 70/Hypromellose Tears Eye Drops 15 ml BTL (for Artificials Tears) BOTH EYES SCH ×6 (00:03→20:06)
[2020-08-04] MEDS: Chlorhexidine MOUTHWASH 0.12% 15 ML UDC SWISH SPIT SCH ×6 (02:08→21:09)
[2020-08-04 04:42] LABS: ABS Eosinophils 0.4 10^3/ul (0-0.6); ABS Lymphocytes 1.7 10^3/ul (1.0-4.8); ABS Monocytes 1.4 10^3/ul (0-0.8); Eosinophil % 2.8 %; Hematocrit 48 % (42-52); Hemoglobin 15.1 g/dL (14.0-18.0); Lymphocyte % 13.9 %; Mean Corpuscular HGB Conc 32 g/dL (31-36); Mean Corpuscular Hemoglobin 29 pg (27-31); Mean Corpuscular Volume 92 fL (80-94); Mean Platelet Volume 9.9 fL (7.4-10.4); Platelet Count 239 10^3/uL (150-450); Red Blood Count 5.24 10^6 /uL (4.18-5.48); Red Cell Distribution Width 16 % (10-15); White Blood Count 12.5 10^3/uL (3.5-10.8)
[2020-08-04 05:02] LABS: Calcium 8.8 mg/dL (8.6-10.3); Potassium 4.2 mmol/L (3.5-5.0)
[2020-08-04 05:08] LABS: EGFR African American 195.7 (>60); EGFR Non-African American 161.7 (>60)
[2020-08-04 09:11] LABS: Phosphorus 2.9 mg/dL (2.5-5.0)
[2020-08-04] MEDS: Enoxaparin 40 MG/0.4 ML SYR SUBCUT SCH ×2 (10:44→21:09)
[2020-08-04] MEDS: Famotidine IV 10 MG/ML 2 ml VIAL (20 mg) IV SLOW PU SCH ×2 (10:44→21:09)
[2020-08-04] MEDS ORDERED: fentaNYL 100 mcg/2 ml 50 MCG/ML VIAL IV SLOW PU ONE ×2 (12:09→17:30)
[2020-08-04] MEDS: fentaNYL 100 mcg/2 ml 50 MCG/ML VIAL IV SLOW PU PRN (12:22)
[2020-08-05] MEDS: Dextran 70/Hypromellose Tears Eye Drops 15 ml BTL (for Artificials Tears) BOTH EYES SCH ×6 (01:09→21:54)
[2020-08-05] MEDS: Chlorhexidine MOUTHWASH 0.12% 15 ML UDC SWISH SPIT SCH ×6 (02:51→21:56)
[2020-08-05 05:25] LABS: Hematocrit 50 % (42-52); Hemoglobin 15.6 g/dL (14.0-18.0); Mean Corpuscular HGB Conc 31 g/dL (31-36); Mean Corpuscular Hemoglobin 29 pg (27-31); Mean Corpuscular Volume 93 fL (80-94); Platelet Count 259 10^3/uL (150-450); Red Blood Count 5.44 10^6 /uL (4.18-5.48); Red Cell Distribution Width 16 % (10-15); White Blood Count 11.9 10^3/uL (3.5-10.8)
[2020-08-05 05:40] LABS: BUN/Creatinine Ratio 36.1 (8-20); Calcium 9.3 mg/dL (8.6-10.3); EGFR Non-African American 140.5 (>60); Phosphorus 2.9 mg/dL (2.5-5.0); Potassium 3.8 mmol/L (3.5-5.0)
[2020-08-05] MEDS ORDERED: Atropine 1% (ORAL/SL) 15 ML BTL SL PRN (07:36)
[2020-08-05] MEDS: Enoxaparin 40 MG/0.4 ML SYR SUBCUT SCH ×2 (09:24→21:54)
[2020-08-05] MEDS: Famotidine IV 10 MG/ML 2 ml VIAL (20 mg) IV SLOW PU SCH (09:39)
[2020-08-06] MEDS: Dextran 70/Hypromellose Tears Eye Drops 15 ml BTL (for Artificials Tears) BOTH EYES SCH ×6 (00:33→17:48)
[2020-08-06] MEDS: Chlorhexidine MOUTHWASH 0.12% 15 ML UDC SWISH SPIT SCH ×6 (02:13→20:35)
[2020-08-06 03:26] LABS: ABS Eosinophils 0.4 10^3/ul (0-0.6); ABS Lymphocytes 1.6 10^3/ul (1.0-4.8); ABS Monocytes 1.2 10^3/ul (0-0.8); ABS Neutrophils 8.3 10^3/ul (1.5-7.7); Eosinophil % 3.6 %; Hematocrit 49 % (42-52); Hemoglobin 15.3 g/dL (14.0-18.0); Lymphocyte % 13.8 %; Mean Corpuscular HGB Conc 32 g/dL (31-36); Mean Corpuscular Hemoglobin 29 pg (27-31); Mean Corpuscular Volume 92 fL (80-94); Mean Platelet Volume 9.5 fL (7.4-10.4); Platelet Count 254 10^3/uL (150-450); Red Blood Count 5.27 10^6 /uL (4.18-5.48); Red Cell Distribution Width 16 % (10-15); White Blood Count 11.6 10^3/uL (3.5-10.8)
[2020-08-06 03:40] LABS: BUN/Creatinine Ratio 43.9 (8-20); Blood Urea Nitrogen 25 mg/dL (6-24); CO2 Carbon Dioxide 35 mmol/L (22-32); Calcium 9.6 mg/dL (8.6-10.3); Chloride 100 mmol/L (101-111); EGFR African American 183.8 (>60); EGFR Non-African American 151.9 (>60); Glucose 141 mg/dL (70-100); Phosphorus 3.3 mg/dL (2.5-5.0); Sodium 141 mmol/L (135-145)
[2020-08-06 03:50] LABS: Anion Gap 6 mmol/L (2-11)
[2020-08-06] MEDS: Enoxaparin 40 MG/0.4 ML SYR SUBCUT SCH ×2 (10:11→20:35)
[2020-08-06] MEDS: Multivitamins ADULT w/MIN LIQ 15 ML UDC PO SCH (10:12)
[2020-08-07] MEDS: Dextran 70/Hypromellose Tears Eye Drops 15 ml BTL (for Artificials Tears) BOTH EYES SCH ×6 (00:24→20:39)
[2020-08-07] MEDS: Chlorhexidine MOUTHWASH 0.12% 15 ML UDC SWISH SPIT SCH ×6 (01:38→22:36)
[2020-08-07] MEDS: Enoxaparin 40 MG/0.4 ML SYR SUBCUT SCH ×2 (10:10→20:40)
[2020-08-07] MEDS: Multivitamins ADULT w/MIN LIQ 15 ML UDC PO SCH (10:10)
[2020-08-08] MEDS: Dextran 70/Hypromellose Tears Eye Drops 15 ml BTL (for Artificials Tears) BOTH EYES SCH ×3 (01:15→09:07)
[2020-08-08] MEDS: Chlorhexidine MOUTHWASH 0.12% 15 ML UDC SWISH SPIT SCH ×2 (02:38→06:29)
[2020-08-08 05:36] LABS: ABS Eosinophils 0.4 10^3/ul (0-0.6); ABS Lymphocytes 1.5 10^3/ul (1.0-4.8); ABS Neutrophils 7.5 10^3/ul (1.5-7.7); Eosinophil % 3.4 %; Hematocrit 49 % (42-52); Hemoglobin 15.4 g/dL (14.0-18.0); Lymphocyte % 14.6 %; Mean Corpuscular HGB Conc 32 g/dL (31-36); Mean Corpuscular Hemoglobin 29 pg (27-31); Mean Corpuscular Volume 93 fL (80-94); Mean Platelet Volume 10.4 fL (7.4-10.4); Platelet Count 263 10^3/uL (150-450); Red Blood Count 5.26 10^6 /uL (4.18-5.48); Red Cell Distribution Width 16 % (10-15); White Blood Count 10.4 10^3/uL (3.5-10.8)
[2020-08-08 05:41] LABS: Blood Urea Nitrogen 24 mg/dL (6-24); CO2 Carbon Dioxide 38 mmol/L (22-32); Calcium 9.2 mg/dL (8.6-10.3); Chloride 99 mmol/L (101-111); EGFR African American 173.3 (>60); EGFR Non-African American 143.2 (>60); Glucose 135 mg/dL (70-100); Sodium 143 mmol/L (135-145)
[2020-08-08 05:44] LABS: Anion Gap 6 mmol/L (2-11)
[2020-08-08] MEDS: Multivitamins ADULT w/MIN LIQ 15 ML UDC PO SCH (09:08)
[2020-08-08] MEDS: Enoxaparin 40 MG/0.4 ML SYR SUBCUT SCH (09:08)
[2020-08-08] MEDS ORDERED: Tiotropium Brom/Olodaterol MDI INH SCH (10:00)
[2020-08-08 10:53] VITALS: BP 147/101
== END 2020-08-08 10:41 | DRG 4 ==
LOC: ED 10:18 → ICU 17:37
PROVIDERS: ADMIT Surgery Surgical Critical Care; ATTEND Internal Medicine

== ENCOUNTER 2020-08-08 09:39 | Inpatient (IN) ==
[2020-08-08] MEDS ORDERED: Al Hydrox/Mg Hydrox/Simet LIQ 30 ML UDC FEED TUBE PRN (12:51)
[2020-08-08] MEDS ORDERED: Dextran 70/Hypromellose Tears Eye Drops 15 ml BTL (for Artificials Tears) BOTH EYES PRN (13:06)
[2020-08-08] MEDS ORDERED: Dextrose 50% Syringe 50 ml 25 GM/50 ML SYRINGE IV PUSH PRN (13:11)
[2020-08-08] MEDS ORDERED: Albuterol/Ipratropium NEB.SOL (2.5/0.5 MG) 3 ML NEB.SOLN INH PRN (13:12)
[2020-08-08] MEDS: Chlorhexidine MOUTHWASH 0.12% 15 ML UDC SWISH SPIT SCH ×3 (16:10→22:00)
[2020-08-08] MEDS: Enoxaparin 40 MG/0.4 ML SYR SUBCUT SCH (21:37)
[2020-08-08] MEDS: Famotidine SUSP ORALSYR 8 MG/ML FEED TUBE SCH (21:49)
[2020-08-09] MEDS: Chlorhexidine MOUTHWASH 0.12% 15 ML UDC SWISH SPIT SCH ×3 (01:58→11:24)
[2020-08-09 06:17] LABS: ABS Eosinophils 0.4 10^3/ul (0-0.6); ABS Lymphocytes 1.6 10^3/ul (1.0-4.8); ABS Monocytes 0.8 10^3/ul (0-0.8); ABS Neutrophils 7.3 10^3/ul (1.5-7.7); Eosinophil % 3.7 %; Hematocrit 48 % (42-52); Hemoglobin 14.9 g/dL (14.0-18.0); Lymphocyte % 15.4 %; Mean Corpuscular HGB Conc 31 g/dL (31-36); Mean Corpuscular Hemoglobin 29 pg (27-31); Mean Corpuscular Volume 93 fL (80-94); Mean Platelet Volume 9.8 fL (7.4-10.4); Platelet Count 227 10^3/uL (150-450); Red Blood Count 5.15 10^6 /uL (4.18-5.48); Red Cell Distribution Width 16 % (10-15); White Blood Count 10.1 10^3/uL (3.5-10.8)
[2020-08-09 06:34] LABS: Albumin 3.5 g/dL (3.2-5.2); Albumin/Globulin Ratio 1.1 (1-3); BUN/Creatinine Ratio 32.8 (8-20); Calcium 9.2 mg/dL (8.6-10.3); EGFR African American 160.8 (>60); EGFR Non-African American 132.9 (>60); Globulin 3.2 g/dL (2-4); Potassium 3.9 mmol/L (3.5-5.0); Total Bilirubin 0.6 mg/dL (0.2-1.0); Total Protein 6.7 g/dL (6.4-8.9)
[2020-08-09] MEDS: Enoxaparin 40 MG/0.4 ML SYR SUBCUT SCH ×2 (08:14→21:29)
[2020-08-09] MEDS: Famotidine SUSP ORALSYR 8 MG/ML FEED TUBE SCH ×2 (08:16→21:29)
[2020-08-09] MEDS: Multivitamins/Minerals TAB PO SCH (08:17)
[2020-08-09] MEDS: Tiotropium Brom/Olodaterol MDI INH SCH (09:28)
[2020-08-10] MEDS: Tiotropium Brom/Olodaterol MDI INH SCH (09:02)
[2020-08-10] MEDS: Enoxaparin 40 MG/0.4 ML SYR SUBCUT SCH ×2 (09:27→20:58)
[2020-08-10] MEDS: Famotidine SUSP ORALSYR 8 MG/ML FEED TUBE SCH ×2 (09:27→20:57)
[2020-08-10] MEDS: Multivitamins/Minerals TAB PO SCH (09:27)
[2020-08-11] MEDS: Tiotropium Brom/Olodaterol MDI INH SCH (07:43)
[2020-08-11] MEDS: Famotidine SUSP ORALSYR 8 MG/ML FEED TUBE SCH ×2 (08:36→20:43)
[2020-08-11] MEDS: Multivitamins/Minerals TAB PO SCH (08:37)
[2020-08-11] MEDS: Enoxaparin 40 MG/0.4 ML SYR SUBCUT SCH ×2 (08:37→20:43)
[2020-08-11] MEDS ORDERED: Al Hydrox/Mg Hydrox/Simet LIQ 30 ML UDC PO PRN (13:02)
[2020-08-12] MEDS: Tiotropium Brom/Olodaterol MDI INH SCH (09:49)
[2020-08-12] MEDS: Enoxaparin 40 MG/0.4 ML SYR SUBCUT SCH ×2 (10:28→20:54)
[2020-08-12] MEDS: Famotidine SUSP ORALSYR 8 MG/ML FEED TUBE SCH ×2 (10:28→20:54)
[2020-08-12] MEDS: Multivitamins/Minerals TAB PO SCH (10:29)
[2020-08-13 06:28] LABS: ABS Basophils 0.1 10^3/ul (0-0.2); ABS Eosinophils 0.3 10^3/ul (0-0.6); ABS Lymphocytes 1.7 10^3/ul (1.0-4.8); ABS Monocytes 0.7 10^3/ul (0-0.8); ABS Neutrophils 6.5 10^3/ul (1.5-7.7); Eosinophil % 3.5 %; Hematocrit 48 % (42-52); Hemoglobin 15.5 g/dL (14.0-18.0); Lymphocyte % 18.8 %; Mean Corpuscular HGB Conc 33 g/dL (31-36); Mean Corpuscular Hemoglobin 29 pg (27-31); Mean Corpuscular Volume 90 fL (80-94); Mean Platelet Volume 9.7 fL (7.4-10.4); Platelet Count 198 10^3/uL (150-450); Red Blood Count 5.29 10^6 /uL (4.18-5.48); Red Cell Distribution Width 16 % (10-15); White Blood Count 9.3 10^3/uL (3.5-10.8)
[2020-08-13 06:45] LABS: Albumin 3.8 g/dL (3.2-5.2); Albumin/Globulin Ratio 1.2 (1-3); BUN/Creatinine Ratio 21.4 (8-20); Calcium 9.2 mg/dL (8.6-10.3); EGFR Non-African American 119.9 (>60); Globulin 3.2 g/dL (2-4); Potassium 3.8 mmol/L (3.5-5.0); Total Bilirubin 0.5 mg/dL (0.2-1.0)
[2020-08-13] MEDS: Tiotropium Brom/Olodaterol MDI INH SCH (09:19)
[2020-08-13] MEDS: Famotidine SUSP ORALSYR 8 MG/ML FEED TUBE SCH ×2 (09:29→20:48)
[2020-08-13] MEDS: Enoxaparin 40 MG/0.4 ML SYR SUBCUT SCH ×2 (09:29→20:47)
[2020-08-13] MEDS: Multivitamins/Minerals TAB PO SCH (09:30)
[2020-08-14] MEDS: Tiotropium Brom/Olodaterol MDI INH SCH (07:22)
[2020-08-14] MEDS: Enoxaparin 40 MG/0.4 ML SYR SUBCUT SCH ×2 (09:27→20:13)
[2020-08-14] MEDS: Multivitamins/Minerals TAB PO SCH (09:28)
[2020-08-14] MEDS: Famotidine SUSP ORALSYR 8 MG/ML FEED TUBE SCH ×2 (09:31→20:13)
[2020-08-15] MEDS: Tiotropium Brom/Olodaterol MDI INH SCH (07:05)
[2020-08-15] MEDS: Enoxaparin 40 MG/0.4 ML SYR SUBCUT SCH ×2 (09:28→20:27)
[2020-08-15] MEDS: Multivitamins/Minerals TAB PO SCH (09:28)
[2020-08-15] MEDS: Famotidine SUSP ORALSYR 8 MG/ML FEED TUBE SCH ×2 (09:31→20:27)
[2020-08-16] MEDS: Tiotropium Brom/Olodaterol MDI INH SCH (07:00)
[2020-08-16] MEDS: Multivitamins/Minerals TAB PO SCH (09:11)
[2020-08-16] MEDS: Famotidine SUSP ORALSYR 8 MG/ML FEED TUBE SCH ×2 (09:11→21:56)
[2020-08-16] MEDS: Enoxaparin 40 MG/0.4 ML SYR SUBCUT SCH ×2 (09:11→21:56)
[2020-08-17] MEDS: Tiotropium Brom/Olodaterol MDI INH SCH (07:01)
[2020-08-17] MEDS: Famotidine SUSP ORALSYR 8 MG/ML FEED TUBE SCH ×2 (08:50→20:32)
[2020-08-17] MEDS: Multivitamins/Minerals TAB PO SCH (08:51)
[2020-08-17] MEDS: Enoxaparin 40 MG/0.4 ML SYR SUBCUT SCH ×2 (08:55→20:33)
[2020-08-18] MEDS: Tiotropium Brom/Olodaterol MDI INH SCH (07:42)
[2020-08-18] MEDS: Multivitamins/Minerals TAB PO SCH (08:04)
[2020-08-18] MEDS: Enoxaparin 40 MG/0.4 ML SYR SUBCUT SCH (08:04)
[2020-08-19 06:34] VITALS: BP 122/67
[2020-08-19] MEDS: Tiotropium Brom/Olodaterol MDI INH SCH (07:09)
[2020-08-19] MEDS ORDERED: Enoxaparin 40 MG/0.4 ML SYR SUBCUT SCH (09:00)
[2020-08-19] MEDS: Multivitamins/Minerals TAB PO SCH (09:33)
== END 2020-08-19 17:15 | disposition home or self-care (01) | DRG 254 ==
LOC: PMRU 11:42
PROVIDERS: ADMIT Physical Medicine & Rehabilitation; ATTEND Physical Medicine & Rehabilitation